=== PATIENT | female | born 1960 | race American Indian/Alaskan Native ===

== ENCOUNTER 2016-12-14 07:34 | Day surgery (SDC) | payer MEDICARE, OTHER ==
[2016-12-14 08:46] VITALS: BMI 29.2
[2016-12-14] MEDS ORDERED: Propofol 10 mg/ml Inj (20 ML) ONE (09:49)
--- NOTE | 2016-12-14 09:50 | CP.SDSHP ---
Same Day Surgery H & P - History Proposed Procedure: EGD Pre-Op Diagnosis: SEE NOTES - Previous Medical/Surgical History Cardiac: Hypertension Pulmonary: Asthma Endocrine/Metabolic: Diabetes, Other Neuro: Backaches Pain: 4.Moderate Pain - Allergies Allergies: Allergies No Known Allergies Allergy (Verified 12/14/16 08:46) - Physical Exam General Appearance: N Vital Signs: Vital Signs 12/14/16 12/14/16 08:28 09:22 Temperature 97.8 F 97.8 F Pulse Rate 84 84 Respiratory 18 18 Rate Blood Pressure 140/76 140/76 O2 Sat by Pulse 98 98 Oximetry Mental Status: Alert & Oriented x3 Neuro: WNL Heart: Other Lungs: Other GI: WNL - {Optional Preform as Required} Breast: WNL Abdomen: Other Rectal: Other Integument: WNL : WNL Ortho: Other ENT: WNL - Impression Pt. Evaluated Today:Candidate for Anesthesia & Procedure: Yes - Date & Time Time: 09:49 Short Stay Discharge - Short Stay Discharge Admitting Diagnosis/Reason for Visit: FUNCTIONAL DYSPEPSIA Disposition: HOME/ ROUTINE
[2016-12-14] MEDS ORDERED: Belladonna-Phenobarbital PO STA (10:13)
[2016-12-14 10:45] VITALS: TEMP 97.3; O2SAT 100
[2016-12-14 13:55] VITALS: BP 135/75; PULSE 60; RESP 17
== END 2016-12-14 11:05 | disposition home or self-care (01) ==
LOC: C.ENDO 07:34
PROVIDERS: ATTEND Specialist
DX: K29.00 Acute gastritis without bleeding (principal); K21.0 Gastro-esophageal reflux disease with esophagitis; K44.9 Diaphragmatic hernia without obstruction or gangrene
CPT/HCPCS: 43239; 82948; 88305; J2001; J2704

== ENCOUNTER 2017-04-24 07:29 | Day surgery (SDC) | payer MEDICARE, OTHER ==
[2017-04-24] MEDS ORDERED: Propofol 10 mg/ml Inj (20 ML) ONE (09:45)
[2017-04-24] MEDS ORDERED: Lactated Ringer's 500 ML IV SCH (09:45)
[2017-04-24] MEDS ORDERED: Albuterol HFA 90 mcg/actuation (8 g) ONE (09:48)
--- NOTE | 2017-04-24 09:51 | CP.SDSHP ---
Same Day Surgery H & P - History Proposed Procedure: colonscopy Pre-Op Diagnosis: SEE NOTES - Previous Medical/Surgical History Cardiac: Hypertension Pulmonary: Asthma Endocrine/Metabolic: Diabetes Neuro: Backaches, Other Misc: Other Pain: 4.Moderate Pain - Allergies Allergies: Allergies No Known Allergies Allergy (Verified 12/14/16 08:46) - Physical Exam General Appearance: N Vital Signs: Vital Signs 04/24/17 08:59 Temperature 97.4 F L Pulse Rate 73 Respiratory 19 Rate Blood Pressure 140/83 O2 Sat by Pulse 98 Oximetry Mental Status: Alert & Oriented x3 Neuro: WNL Heart: Other Lungs: Other GI: Other - {Optional Preform as Required} Breast: WNL Abdomen: Other Rectal: Other Integument: WNL : WNL Ortho: Other ENT: WNL - Impression Pt. Evaluated Today:Candidate for Anesthesia & Procedure: Yes - Date & Time Time: 09:51 Short Stay Discharge - Short Stay Discharge Admitting Diagnosis/Reason for Visit: HEMORRHAGE OF ANUS AND RECTUM Disposition: HOME/ ROUTINE
[2017-04-24] MEDS ORDERED: Belladonna-Phenobarbital PO ONE (10:40)
[2017-04-24 11:21] VITALS: TEMP 98.3
[2017-04-24 11:25] VITALS: BP 159/92; PULSE 68; RESP 18; O2SAT 99
== END 2017-04-24 11:35 | disposition home or self-care (01) ==
LOC: C.ENDO 07:29
PROVIDERS: ATTEND Specialist
DX: K62.5 Hemorrhage of anus and rectum (principal); K64.8 Other hemorrhoids; K57.30 Diverticulosis of large intestine without perforation or abscess without bleeding; K58.9 Irritable bowel syndrome, unspecified
CPT/HCPCS: 45380; 82948; 88305; J2704; J7120

== ENCOUNTER 2018-09-25 09:44 | Outpatient (CLI) | payer MEDICARE | END 2018-09-25 09:45 | disposition home or self-care (01) | LOC: C.MAMMO 09:45 | DX: N64.4 Mastodynia (principal) ==